=== PATIENT | male | born 1950 | race Caucasian/White ===

== ENCOUNTER 2016-08-09 16:19 | Inpatient (IN) | payer OTHER ==
[~2016-08-09] VITALS: Ht 165.1 cm; Wt 80.1 kg
[2016-08-09] MEDS ORDERED: NITROGLYCERIN 0.4 MG SL TAB SL PRN (20:15)
[2016-08-09] MEDS ORDERED: MORPHINE SULF INJ 2 MG/ML SYRINGE 1ML IV PRN (20:15)
[2016-08-09 22:00] VITALS: BP 123/69
[2016-08-10] VITALS (16 sets, daily range): BP systolic 116–140; BP diastolic 68–83
[2016-08-10 07:40] LABS: Basophils # (auto) 0 uL; Basophils % (auto) 0.4 % (0.0-2.0); DEFINITIVE VIEW TRANSMISSION; Eosinophils # (auto) 0.1 uL; Hemoglobin 7.2 g/dL (13.5-17.5); Lymphocytes # (auto) 0.8 uL; Lymphocytes % (auto) 8.1 % (10.0-50.0); Mean Corpuscular Hemoglobin 27.9 pg (28.0-32.0); Mean Corpuscular Hgb Conc. 31.5 g/dL (32.0-36.0); Mean Corpuscular Volume 88.6 fL (80.0-100.0); Mean Platelet Volume 5.8 fL (7.4-10.4); Monocytes # (auto) 0.8 uL; Monocytes % (auto) 8.2 % (0.0-12.0); Neutrophils # (auto) 7.9 uL; Neutrophils % (auto) 82.3 % (37.0-80.0); Platelet Count (auto) 685 10^3/uL (140-450); Red Cell Distribution Width 15.7 % (11.6-16.0); SUSPECT VIEW TRANSMISSION; White Blood Cell 9.6 10^3/uL (4.4-10.8)
[2016-08-10 08:03] LABS: BUN/Creatinine Ratio 11.8; Calcium 8.7 mg/dL (8.5-10.1); Potassium 4.6 mmol/L (3.5-5.1)
[2016-08-10] MEDS ORDERED: DEXTROSE (50%) 50ML SYRG IV PRN (12:45)
[2016-08-10] MEDS: InsuLIN REG 1unit/0.01ml Soln (100units/ml) SC SCH ×2 (17:00→22:00)
[2016-08-10] MEDS: ACCU-CHEK COMFORT CURVE STRIP VI SCH ×2 (17:00→22:27)
[2016-08-10 20:59] LABS: Urine Bilirubin Negative (Negative); Urine Color Orange (Yellow); Urine Ketone Negative (Negative); Urine Nitrite Negative (Negative); Urine RBC 1582 /hpf (0 - 3); Urine Urobilinogen Normal (Negative); Urine WBC Clumps PRESENT /hpf (None Seen); Urine pH 7.5 (5.0-8.0)
[2016-08-10 21:15] LABS: Urine Blood 2+ /uL (Negative); Urine Glucose 4+ mg/dL (Normal)
[2016-08-11 05:00] VITALS: BP 120/68
[2016-08-11 06:22] LABS: Basophils # (auto) 0 uL; Basophils % (auto) 0.2 % (0.0-2.0); Eosinophils # (auto) 0.1 uL; Eosinophils % (auto) 0.7 % (0.0-7.0); Hematocrit 29.3 % (41.0-53.0); Hemoglobin 9.4 g/dL (13.5-17.5); Lymphocytes # (auto) 0.6 uL; Lymphocytes % (auto) 7.6 % (10.0-50.0); Mean Corpuscular Hemoglobin 27.9 pg (28.0-32.0); Mean Corpuscular Volume 87.3 fL (80.0-100.0); Mean Platelet Volume 5.7 fL (7.4-10.4); Monocytes # (auto) 0.7 uL; Monocytes % (auto) 7.7 % (0.0-12.0); Neutrophils % (auto) 83.8 % (37.0-80.0); Platelet Count (auto) 642 10^3/uL (140-450); Red Cell Distribution Width 16.7 % (11.6-16.0); White Blood Cell 8.4 10^3/uL (4.4-10.8)
[2016-08-11] MEDS: InsuLIN REG 1unit/0.01ml Soln (100units/ml) SC SCH ×4 (06:29→22:00)
[2016-08-11] MEDS: ACCU-CHEK COMFORT CURVE STRIP VI SCH ×5 (06:29→21:55)
[2016-08-11 06:38] LABS: Partial Thromboplastin Time 35.3 sec (22.64-33.71)
[2016-08-11 06:44] LABS: Albumin 2.1 g/dL (3.4-5.0); BUN/Creatinine Ratio 10.4; Calcium 7.8 mg/dL (8.5-10.1)
[2016-08-11 06:45] LABS: INR 1.23 (0.9-1.15); Prothrombin Time 12.7 sec (9.37-12.3)
[2016-08-11 06:46] LABS: Bilirubin, Total 0.5 mg/dL (0.2-1.0)
[2016-08-11 08:13] VITALS: BP 134/69
[2016-08-11] MEDS: HYDROmorphone HCL 2 MG/ML VL IV PRN ×2 (09:21→19:04)
[2016-08-11] MEDS ORDERED: SODIUM CHLORIDE LOCK 10 ML ONE (11:49)
[2016-08-11] MEDS ORDERED: PROPOFOL 10 MG/ML 20 ML IV ONE (11:49)
[2016-08-11] MEDS ORDERED: ONDANSETRON HCL 4 MG/2 ML VIAL ONE (11:49)
[2016-08-11] MEDS ORDERED: MIDAZOLAM HCL 1MG/1ML-2 ML VIAL ONE (11:49)
[2016-08-11] MEDS ORDERED: fentaNYL CITRATE 100 MCG/2 ML VL ONE ×2 (11:49→12:27)
[2016-08-11] MEDS ORDERED: ceFAZolin 1GM/50ML D5W 50 ML IV ONE (12:17)
[2016-08-11 12:48] VITALS: BP 127/82
[2016-08-11] MEDS ORDERED: METHYLENE BLUE 1% 1 ML VIAL IV ONE (12:52)
[2016-08-11] MEDS ORDERED: hydrALAZINE HCL 20 MG/ML VL IV PRN (13:45)
[2016-08-11] MEDS ORDERED: ePHEDrine SULFATE 50 MG/ML AMP IV PRN (13:45)
[2016-08-11] MEDS ORDERED: HYDROmorphone HCL 2 MG/ML VL IV PRN (13:45)
[2016-08-11] MEDS ORDERED: ONDANSETRON HCL 4 MG/2 ML VIAL IV ONE (13:45)
[2016-08-11] MEDS ORDERED: IOHEXOL 300 MG/ML 100ML BOTTLE IJ ONE ×2 (14:08→14:19)
[2016-08-11 16:23] VITALS: BP 112/87
[2016-08-11 22:00] VITALS: BP 118/83
[2016-08-12] MEDS: HYDROmorphone HCL 2 MG/ML VL IV PRN ×5 (01:18→21:55)
[2016-08-12 05:00] VITALS: BP 124/70
[2016-08-12 06:27] LABS: Basophils # (auto) 0.1 uL; Basophils % (auto) 0.5 % (0.0-2.0); Eosinophils # (auto) 0.1 uL; Hemoglobin 9.9 g/dL (13.5-17.5); Lymphocytes # (auto) 0.9 uL; Lymphocytes % (auto) 7.8 % (10.0-50.0); Mean Corpuscular Hemoglobin 27.8 pg (28.0-32.0); Mean Corpuscular Hgb Conc. 31.8 g/dL (32.0-36.0); Mean Corpuscular Volume 87.5 fL (80.0-100.0); Mean Platelet Volume 5.5 fL (7.4-10.4); Monocytes # (auto) 0.8 uL; Monocytes % (auto) 6.9 % (0.0-12.0); Neutrophils # (auto) 10.1 uL; Neutrophils % (auto) 83.8 % (37.0-80.0); Platelet Count (auto) 675 10^3/uL (140-450); Red Cell Distribution Width 16.5 % (11.6-16.0)
[2016-08-12 06:45] LABS: BUN/Creatinine Ratio 10.6; Potassium 5.1 mmol/L (3.5-5.1)
[2016-08-12] MEDS: ACCU-CHEK COMFORT CURVE STRIP VI SCH ×4 (07:00→22:04)
[2016-08-12] MEDS: InsuLIN REG 1unit/0.01ml Soln (100units/ml) SC SCH ×4 (07:00→22:23)
[2016-08-12] MEDS ORDERED: IOHEXOL 300 MG/ML 100ML BOTTLE IJ ONE (08:10)
[2016-08-12] MEDS ORDERED: IODIXANOL 320MG/ML 100ML BTL IV ONE (08:17)
[2016-08-12 09:00] VITALS: BP 171/83
[2016-08-12 13:00] VITALS: BP 130/77
[2016-08-12 16:48] VITALS: BP 111/79
[2016-08-12 21:43] VITALS: BP 106/68
[2016-08-13] MEDS: HYDROmorphone HCL 2 MG/ML VL IV PRN ×5 (01:53→20:54)
[2016-08-13 04:37] VITALS: BP 107/65
[2016-08-13] MEDS: ACCU-CHEK COMFORT CURVE STRIP VI SCH ×4 (06:50→22:23)
[2016-08-13] MEDS: InsuLIN REG 1unit/0.01ml Soln (100units/ml) SC SCH ×4 (07:00→22:27)
[2016-08-13 09:00] VITALS: BP 109/68
[2016-08-13 13:00] VITALS: BP 134/69
[2016-08-13 17:26] VITALS: BP 129/74
[2016-08-13 20:36] VITALS: BP 118/71
[2016-08-14] MEDS: HYDROmorphone HCL 2 MG/ML VL IV PRN ×6 (01:14→22:53)
[2016-08-14 04:42] VITALS: BP 111/77
[2016-08-14 06:12] LABS: Basophils # (auto) 0 uL; Basophils % (auto) 0.2 % (0.0-2.0); Eosinophils # (auto) 0.2 uL; Eosinophils % (auto) 1.4 % (0.0-7.0); Hematocrit 32.3 % (41.0-53.0); Hemoglobin 10.2 g/dL (13.5-17.5); Lymphocytes # (auto) 0.9 uL; Lymphocytes % (auto) 7.2 % (10.0-50.0); Mean Corpuscular Hemoglobin 27.5 pg (28.0-32.0); Mean Corpuscular Hgb Conc. 31.5 g/dL (32.0-36.0); Mean Corpuscular Volume 87.2 fL (80.0-100.0); Mean Platelet Volume 5.9 fL (7.4-10.4); Monocytes # (auto) 0.9 uL; Monocytes % (auto) 6.5 % (0.0-12.0); Neutrophils # (auto) 11.2 uL; Neutrophils % (auto) 84.7 % (37.0-80.0); Platelet Count (auto) 626 10^3/uL (140-450); Red Cell Distribution Width 17.2 % (11.6-16.0); White Blood Cell 13.3 10^3/uL (4.4-10.8)
[2016-08-14] MEDS: ACCU-CHEK COMFORT CURVE STRIP VI SCH ×4 (06:43→21:59)
[2016-08-14] MEDS: InsuLIN REG 1unit/0.01ml Soln (100units/ml) SC SCH ×4 (06:49→22:04)
[2016-08-14 08:00] VITALS: BP 119/76
[2016-08-14 13:00] VITALS: BP 124/74
[2016-08-14 17:00] VITALS: BP 128/63
[2016-08-14 21:40] VITALS: BP 119/85
[2016-08-15] MEDS: HYDROmorphone HCL 2 MG/ML VL IV PRN ×5 (03:10→20:30)
[2016-08-15 04:40] VITALS: BP 120/77
[2016-08-15] MEDS: ACCU-CHEK COMFORT CURVE STRIP VI SCH ×4 (06:55→22:12)
[2016-08-15] MEDS: InsuLIN REG 1unit/0.01ml Soln (100units/ml) SC SCH ×4 (06:57→22:00)
[2016-08-15] MEDS ORDERED: IOHEXOL 300 MG/ML 100ML BOTTLE IJ ONE (07:56)
[2016-08-15 08:00] VITALS: BP 130/85
[2016-08-15 12:00] VITALS: BP 115/84
[2016-08-15 16:30] VITALS: BP 115/83
[2016-08-15 23:16] VITALS: BP 110/77
[2016-08-16] MEDS: HYDROmorphone HCL 2 MG/ML VL IV PRN ×4 (00:58→12:36)
[2016-08-16 05:05] VITALS: BP 123/80
[2016-08-16 05:58] LABS: Basophils # (auto) 0 uL; Basophils % (auto) 0.2 % (0.0-2.0); Eosinophils # (auto) 0.1 uL; Eosinophils % (auto) 0.6 % (0.0-7.0); Hematocrit 32.7 % (41.0-53.0); Hemoglobin 10.3 g/dL (13.5-17.5); Lymphocytes # (auto) 0.8 uL; Lymphocytes % (auto) 4.5 % (10.0-50.0); Mean Corpuscular Hemoglobin 27.3 pg (28.0-32.0); Mean Corpuscular Hgb Conc. 31.5 g/dL (32.0-36.0); Mean Corpuscular Volume 86.7 fL (80.0-100.0); Monocytes % (auto) 5.3 % (0.0-12.0); Neutrophils % (auto) 89.4 % (37.0-80.0); Platelet Count (auto) 700 10^3/uL (140-450); Red Cell Distribution Width 16.6 % (11.6-16.0); White Blood Cell 17.9 10^3/uL (4.4-10.8)
[2016-08-16 06:28] LABS: BUN/Creatinine Ratio 15.3; Bilirubin, Total 0.5 mg/dL (0.2-1.0); Calcium 8.9 mg/dL (8.5-10.1); Potassium 4.9 mmol/L (3.5-5.1); Total Protein 6.3 g/dL (6.4-8.2)
[2016-08-16] MEDS: InsuLIN REG 1unit/0.01ml Soln (100units/ml) SC SCH ×2 (06:51→11:30)
[2016-08-16] MEDS: ACCU-CHEK COMFORT CURVE STRIP VI SCH ×2 (06:51→11:30)
[2016-08-16 09:00] VITALS: BP 112/69
[2016-08-16 12:00] VITALS: BP 126/74
== END 2016-08-16 13:20 | disposition home or self-care (01) | DRG 668 ==
LOC: TELE 18:43 → TELE-WESTW 20:26 → WEST WING 08-15 15:17
PROVIDERS: ADMIT Family Medicine; ATTEND Family Medicine
PROC: 30233N1 Transfusion of Nonautologous Red Blood Cells into Peripheral Vein, Percutaneous Approach (ICD-10-PCS; principal; 2016-08-10)
PROC: 0TBB8ZX Excision of Bladder, Via Natural or Artificial Opening Endoscopic, Diagnostic (ICD-10-PCS; 2016-08-11)
PROC: 0T5B8ZZ Destruction of Bladder, Via Natural or Artificial Opening Endoscopic (ICD-10-PCS; 2016-08-11)
DX: C67.9 Malignant neoplasm of bladder, unspecified (principal); E43 Unspecified severe protein-calorie malnutrition; C78.7 Secondary malignant neoplasm of liver and intrahepatic bile duct; C64.9 Malignant neoplasm of unspecified kidney, except renal pelvis; C78.00 Secondary malignant neoplasm of unspecified lung; C79.89 Secondary malignant neoplasm of other specified sites; D63.0 Anemia in neoplastic disease; R31.0 Gross hematuria; K40.20 Bilateral inguinal hernia, without obstruction or gangrene, not specified as recurrent; E27.9 Disorder of adrenal gland, unspecified; K42.9 Umbilical hernia without obstruction or gangrene; E11.9 Type 2 diabetes mellitus without complications; K57.90 Diverticulosis of intestine, part unspecified, without perforation or abscess without bleeding; N32.9 Bladder disorder, unspecified; I10 Essential (primary) hypertension; E78.5 Hyperlipidemia, unspecified; R59.1 Generalized enlarged lymph nodes; M10.9 Gout, unspecified; K80.20 Calculus of gallbladder without cholecystitis without obstruction; Z80.9 Family history of malignant neoplasm, unspecified; Z87.891 Personal history of nicotine dependence; Z68.29 Body mass index [BMI] 29.0-29.9, adult
CPT/HCPCS: 36415; 71250; 74177; 74178; 80048; 80053; 81001; 82962; 85025; 85049; 85610; 85730; 86850; 86900; 86901; 86920; 93005; J0690; J1815; J2250; J2405; J2704; Q9967

== ENCOUNTER → 2016-08-09 | Outpatient (CLI) | payer OTHER ==
[~2016-08-09] VITALS: Ht 177.8 cm; Wt 79.4 kg
[~2016-08-09] MED LIST: ALLO300T2 PO; AMLO10TA2 PO; ASPI81TA27 PO; CANA100T OR; CARV12.544 PO; Glipizide PO; METF-312 PO; MULTTAB5 PO; SIMV-8 PO; TAMS0.4C36 PO
[2016-08-09 13:25] LABS: Basophils # (auto) 0 uL; Basophils % (auto) 0.5 % (0.0-2.0); DEFINITIVE VIEW TRANSMISSION; Eosinophils # (auto) 0.1 uL; Eosinophils % (auto) 1.1 % (0.0-7.0); Hematocrit 18.3 % (41.0-53.0); Lymphocytes # (auto) 0.8 uL; Lymphocytes % (auto) 9.6 % (10.0-50.0); Mean Corpuscular Hemoglobin 27.4 pg (28.0-32.0); Mean Corpuscular Hgb Conc. 31.3 g/dL (32.0-36.0); Mean Corpuscular Volume 87.7 fL (80.0-100.0); Mean Platelet Volume 6.1 fL (7.4-10.4); Monocytes # (auto) 0.7 uL; Monocytes % (auto) 7.7 % (0.0-12.0); Neutrophils # (auto) 7.2 uL; Neutrophils % (auto) 81.1 % (37.0-80.0); Platelet Count (auto) 749 10^3/uL (140-450); Red Cell Distribution Width 17.8 % (11.6-16.0); White Blood Cell 8.9 10^3/uL (4.4-10.8)
[2016-08-09 13:33] LABS: Hemoglobin 5.7 g/dL (13.5-17.5)
[2016-08-09 13:34] LABS: Albumin 2.4 g/dL (3.4-5.0); Calcium 8.5 mg/dL (8.5-10.1); INR 1.13 (0.9-1.15); Partial Thromboplastin Time 29.8 sec (22.64-33.71); Potassium 5.2 mmol/L (3.5-5.1); Prothrombin Time 11.6 sec (9.37-12.3); Urine Bilirubin Negative (Negative); Urine Color Red (Yellow); Urine Ketone Negative (Negative); Urine Nitrite Negative (Negative); Urine RBC 811 /hpf (0 - 3); Urine Urobilinogen Normal (Negative); Urine WBC Clumps PRESENT /hpf (None Seen)
[2016-08-09 13:36] LABS: BUN/Creatinine Ratio 11.9
[2016-08-09 13:39] LABS: Bilirubin, Total 0.3 mg/dL (0.2-1.0); Total Protein 6.4 g/dL (6.4-8.2)
[2016-08-09 14:33] LABS: Urine Blood 3+ /uL (Negative); Urine Glucose 3+ mg/dL (Normal)
== END | disposition home or self-care (01) ==
LOC: LAB 08:00 → EDSTATUS 08-11 09:30
PROVIDERS: ATTEND Urology
DX: C67.9 Malignant neoplasm of bladder, unspecified (principal); R31.0 Gross hematuria
CPT/HCPCS: 36415; 80053; 81001; 85025; 85610; 85730